=== PATIENT | female | born 1940 | race Caucasian/White ===

== ENCOUNTER → 2018-01-03 10:25 | Outpatient (CLI) | payer MEDICARE, OTHER, SELFPAY ==
[2018-01-03 11:38] LABS: AST(SGOT) 16 U/L (15-37); Alanine Aminotransfer ALT/SGPT 23 U/L (13-56); Albumin, Serum 3.4 g/dL (3.2-5.0); Alkaline Phosphatase 74 U/L (45-117); Bilirubin, Direct 0.06 mg/dL (0.00-0.30); Cholesterol 127 mg/dL (200); Globulin 4.1 g/dL (2.2-4.2); High Density Lipoprotein 38 mg/dL; Protein, Total 7.5 g/dL (6.4-8.2); Triglycerides 233 mg/dL; Very Low Density Lipoprotein 47 mg/dL (5-40)
[2018-01-03 14:14] LABS: Anion Gap 8 (5-15); BUN 20 mg/dL (7-18); BUN/Creat Ratio 21.1 RATIO (10-20); Calcium,Total 8.7 mg/dL (8.5-10.1); Chloride 105 mmol/L (98-107); Creatinine, Serum 0.95 mg/dL (0.55-1.02); EST Glomerular Filtration Rate 61 mL/min (>60); Est Glom Filt Rate - Afr Amer 74 mL/min (>60); Glucose 199 mg/dL (74-106); Potassium 4.6 mmol/L (3.5-5.1); Sodium Level 138 mmol/L (136-145); Thyroid Stim Hormone (TSH) 1.04 uIU/mL (0.358-3.74)
== END ==
PROVIDERS: Family Provider Family Medicine; PCP Family Medicine; Visit Provider Internal Medicine Cardiovascular Disease
DX: E78.5 Hyperlipidemia, unspecified (principal); E03.9 Hypothyroidism, unspecified; Z79.899 Other long term (current) drug therapy
CPT/HCPCS: 36415; 80048; 80061; 80076; 84439; 84443

== ENCOUNTER → 2018-05-04 10:06 | Outpatient (CLI) | payer MEDICARE, OTHER, SELFPAY ==
[2018-05-04 11:58] LABS: Absolute Lymphocyte Count 1.76 X10^3/ul (0.83-4.51); Absolute Neutrophil Count 6.1 X10^3/uL (2.0-7.7); Basophil# 0.02 X10^3/uL; Basophil% 0.2 % (0-1); Eosinophil# 0.15 X10^3/uL; Eosinophils% 1.8 % (0-5); Hematocrit 42.8 % (37-47); Hemoglobin 13.7 g/dl (12.0-15.0); Lymphocyte # 1.76 X10^3/ul (4.0); Lymphocyte % 20.7 % (19-41); Mean Corpuscular Hgb 29.3 pg (27.0-32.0); Mean Corpuscular Volume 91.5 fL (81-99); Mean Platelet Vol. 9.6 fl (6.2-12.0); Monocyte# 0.49 X10^3/uL; Monocyte% 5.8 % (0-10); Neutrophil # 6.09 X10^3/uL (2.7-7.7); Neutrophil % 71.4 % (47-70); Platelet Count 321 K/mm3 (150-450); RBC Distribution Width CV 13.3 % (11.6-14.6); RBC Distribution Width SD 43.7 fl (35.1-43.9); Red Blood Count 4.68 M/mm3 (4.2-5.4); White Blood Count 8.5 K/mm3 (4.4-11.0)
[2018-05-04 12:03] LABS: POSITIVE COUNT NO; POSITIVE DIFFERENTIAL NO; POSITIVE MORPHOLOGY NO
[2018-05-04 12:16] LABS: Vitamin D,25 Hydroxy 46.1 ng/mL (29.95-100.01)
[2018-05-04 12:23] LABS: Anion Gap 9 (5-15); BUN 19 mg/dL (7-18); Calcium,Total 9.1 mg/dL (8.5-10.1); Chloride 103 mmol/L (98-107); Creatinine, Serum 0.82 mg/dL (0.55-1.02); EST Glomerular Filtration Rate 72 mL/min (>60); Est Glom Filt Rate - Afr Amer 87 mL/min (>60); Glucose 189 mg/dL (74-106); Potassium 4.1 mmol/L (3.5-5.1); Sodium Level 137 mmol/L (136-145); T4 Free Direct 1.32 ng/dL (0.76-1.46); Thyroid Stim Hormone (TSH) 1.46 uIU/mL (0.358-3.74)
== END ==
PROVIDERS: Family Provider Family Medicine; PCP Family Medicine; Visit Provider Family Medicine
DX: E11.65 Type 2 diabetes mellitus with hyperglycemia (principal); I10 Essential (primary) hypertension; E03.9 Hypothyroidism, unspecified; E55.9 Vitamin D deficiency, unspecified
CPT/HCPCS: 36415; 80048; 82306; 84439; 84443; 85025

== ENCOUNTER → 2019-06-07 09:32 | Outpatient (CLI) | payer MEDICARE, OTHER, SELFPAY ==
[2018-06-30 11:17] VITALS: BMI 38.3
[2019-06-07 12:16] LABS: Absolute Lymphocyte Count 1.58 X10^3/uL (0.83-4.51); Absolute Neutrophil Count 6.1 X10^3/uL (2.0-7.7); Basophil# 0.06 X10^3/uL; Basophil% 0.7 % (0-1); Eosinophil# 0.13 X10^3/uL; Eosinophils% 1.5 % (0-5); Hematocrit 43.1 % (37-47); Lymphocyte # 1.58 X10^3/ul (4.0); Lymphocyte % 18.4 % (19-41); Mean Corp Hgb Conc 32.5 g/dL (32-36); Mean Corpuscular Volume 92.5 fL (81-99); Mean Platelet Vol. 9.6 fl (6.2-12.0); Monocyte# 0.69 X10^3/uL; NRBC Flagged by Analyzer 0 % (0-5); Neutrophil # 6.08 X10^3/uL (2.7-7.7); Neutrophil % 70.9 % (47-70); Platelet Count 329 K/mm3 (150-450); RBC Distribution Width CV 12.6 % (11.6-14.6); RBC Distribution Width SD 42.4 fl (35.1-43.9); Red Blood Count 4.66 M/mm3 (4.2-5.4); White Blood Count 8.6 K/mm3 (4.4-11.0)
[2019-06-07 12:48] LABS: ALB/GLOB Ratio 0.9 RATIO (0.9-2.4); AST(SGOT) 15 U/L (15-37); Alanine Aminotransfer ALT/SGPT 22 U/L (13-56); Albumin, Serum 3.7 g/dL (3.2-5.0); Alkaline Phosphatase 80 U/L (45-117); Anion Gap 10 (5-15); BUN 16 mg/dL (7-18); BUN/Creat Ratio 17.4 RATIO (10-20); Calcium,Total 8.9 mg/dL (8.5-10.1); Chloride 106 mmol/L (98-107); Creatinine, Serum 0.92 mg/dL (0.55-1.02); EST Glomerular Filtration Rate 63 mL/min (>60); Est Glom Filt Rate - Afr Amer 76 mL/min (>60); Glucose 132 mg/dL (74-106); Potassium 4.2 mmol/L (3.5-5.1); Protein, Total 7.7 g/dL (6.4-8.2); Sodium Level 141 mmol/L (136-145); T4 Free Direct 1.43 ng/dL (0.76-1.46); Thyroid Stim Hormone (TSH) 1.55 uIU/mL (0.358-3.74); Vitamin D,25 Hydroxy 59.1 ng/mL (29.95-100.01)
== END ==
PROVIDERS: Family Provider Family Medicine; PCP Family Medicine; Visit Provider Family Medicine
DX: E11.65 Type 2 diabetes mellitus with hyperglycemia (principal); I10 Essential (primary) hypertension; K76.89 Other specified diseases of liver
CPT/HCPCS: 36415; 80053; 82306; 84439; 84443; 85025

== ENCOUNTER → 2019-07-04 11:43 | Outpatient (CLI) | payer MEDICARE, OTHER, SELFPAY ==
[2019-07-04 10:55] VITALS: BMI 42.4
[2019-07-04 13:14] LABS: AST(SGOT) 10 U/L (15-37); Alanine Aminotransfer ALT/SGPT 17 U/L (13-56); Albumin, Serum 3.5 g/dL (3.2-5.0); Alkaline Phosphatase 87 U/L (45-117); Bilirubin, Direct 0.09 mg/dL (0.00-0.30); Cholesterol 133 mg/dL (200); High Density Lipoprotein 37 mg/dL; Protein, Total 7.5 g/dL (6.4-8.2); Triglycerides 221 mg/dL; Very Low Density Lipoprotein 44 mg/dL (5-40)
== END ==
PROVIDERS: Family Provider Family Medicine; PCP Family Medicine; Referring Provider Internal Medicine Cardiovascular Disease; Visit Provider Internal Medicine Cardiovascular Disease
DX: E78.5 Hyperlipidemia, unspecified (principal); Z79.899 Other long term (current) drug therapy
CPT/HCPCS: 36415; 80061; 80076

== ENCOUNTER → 2020-06-27 08:30 | Outpatient (CLI) | payer MEDICARE, OTHER, SELFPAY ==
[2019-07-04 10:55] VITALS: BMI 42.4
[2020-06-27 12:38] LABS: Absolute Lymphocyte Count 1.81 X10^3/uL (0.83-4.51); Absolute Neutrophil Count 4.3 X10^3/uL (2.0-7.7); Basophil# 0.06 X10^3/uL; Basophil% 0.9 % (0-1); Eosinophil# 0.16 X10^3/uL; Eosinophils% 2.3 % (0-5); Hematocrit 40.4 % (37-47); Hemoglobin 12.8 g/dL (12.0-15.0); Lymphocyte # 1.81 X10^3/ul (4.0); Lymphocyte % 26.1 % (19-41); Mean Corp Hgb Conc 31.7 g/dL (32-36); Mean Corpuscular Hgb 29.6 pg (27.0-32.0); Mean Corpuscular Volume 93.5 fL (81-99); Mean Platelet Vol. 9.7 fl (6.2-12.0); Monocyte# 0.55 X10^3/uL; Monocyte% 7.9 % (0-10); NRBC Flagged by Analyzer 0 % (0-5); Neutrophil # 4.34 X10^3/uL (2.7-7.7); Neutrophil % 62.5 % (47-70); Platelet Count 322 K/mm3 (150-450); RBC Distribution Width CV 12.7 % (11.6-14.6); RBC Distribution Width SD 43.2 fl (35.1-43.9); Red Blood Count 4.32 M/mm3 (4.2-5.4); White Blood Count 6.9 K/mm3 (4.4-11.0)
[2020-06-27 12:58] LABS: Vitamin D,25 Hydroxy 73.1 ng/mL
[2020-06-27 13:07] LABS: ALB/GLOB Ratio 0.9 RATIO (0.9-2.4); AST(SGOT) 15 U/L (15-37); Alanine Aminotransfer ALT/SGPT 24 U/L (13-56); Albumin, Serum 3.5 g/dL (3.2-5.0); Alkaline Phosphatase 71 U/L (45-117); Anion Gap 6 (5-15); BUN 19 mg/dL (7-18); BUN/Creat Ratio 20.1 RATIO (10-20); Calcium,Total 8.5 mg/dL (8.5-10.1); Chloride 107 mmol/L (98-107); Creatinine, Serum 0.95 mg/dL (0.55-1.02); EST Glomerular Filtration Rate 61 mL/min (>60); Est Glom Filt Rate - Afr Amer 74 mL/min (>60); Globulin 3.9 g/dL (2.2-4.2); Glucose 111 mg/dL (74-106); Protein, Total 7.4 g/dL (6.4-8.2); Sodium Level 137 mmol/L (136-145); Thyroid Stim Hormone (TSH) 2.63 uIU/mL (0.358-3.74)
== END ==
PROVIDERS: PCP Family Medicine; Visit Provider Family Medicine
DX: E11.65 Type 2 diabetes mellitus with hyperglycemia (principal); E03.9 Hypothyroidism, unspecified; E55.9 Vitamin D deficiency, unspecified; I10 Essential (primary) hypertension
CPT/HCPCS: 36415; 80053; 82306; 83036; 84443; 85025

== ENCOUNTER → 2020-07-09 12:08 | Outpatient (CLI) | payer MEDICARE, OTHER, SELFPAY ==
[2020-07-09 09:51] VITALS: BMI 43.7
[2020-07-09 13:13] LABS: AST(SGOT) 14 U/L (15-37); Alanine Aminotransfer ALT/SGPT 21 U/L (13-56); Albumin, Serum 3.5 g/dL (3.2-5.0); Alkaline Phosphatase 79 U/L (45-117); Bilirubin, Direct 0.12 mg/dL (0.00-0.30); Cholesterol 124 mg/dL (200); Globulin 3.7 g/dL (2.2-4.2); High Density Lipoprotein 38 mg/dL; Protein, Total 7.2 g/dL (6.4-8.2); Triglycerides 232 mg/dL; Very Low Density Lipoprotein 46 mg/dL (5-40)
== END ==
PROVIDERS: PCP Family Medicine; Referring Provider Internal Medicine Cardiovascular Disease; Visit Provider Internal Medicine Cardiovascular Disease
DX: I10 Essential (primary) hypertension (principal); E78.5 Hyperlipidemia, unspecified
CPT/HCPCS: 36415; 80061; 80076

== ENCOUNTER → 2021-01-20 11:14 | Outpatient (CLI) | payer MEDICARE, OTHER, SELFPAY ==
[2020-07-09 09:51] VITALS: BMI 43.7
[2021-01-20 15:54] LABS: Anion Gap 7 (5-15); BUN 19 mg/dL (7-18); BUN/Creat Ratio 17.4 RATIO (10-20); Calcium,Total 9.3 mg/dL (8.5-10.1); Chloride 106 mmol/L (98-107); Creatinine, Serum 1.09 mg/dL (0.55-1.02); EST Glomerular Filtration Rate 52 mL/min (>60); Est Glom Filt Rate - Afr Amer 62 mL/min (>60); Glucose 280 mg/dL (74-106); Potassium 4.3 mmol/L (3.5-5.1); Sodium Level 138 mmol/L (136-145); Thyroid Stim Hormone (TSH) 2.27 uIU/mL (0.358-3.74)
== END ==
PROVIDERS: PCP Family Medicine; Visit Provider Family Medicine
DX: E11.65 Type 2 diabetes mellitus with hyperglycemia (principal); E03.9 Hypothyroidism, unspecified
CPT/HCPCS: 36415; 80048; 84443

== ENCOUNTER → 2021-04-21 11:11 | Outpatient (CLI) | payer MEDICARE, OTHER, SELFPAY ==
[2020-07-09 09:51] VITALS: BMI 43.7
[2021-04-21 13:15] LABS: AST(SGOT) 18 U/L (15-37); Alanine Aminotransfer ALT/SGPT 18 U/L (13-56); Albumin, Serum 3.7 g/dL (3.2-5.0); Alkaline Phosphatase 80 U/L (45-117); Bilirubin, Direct 0.14 mg/dL (0.00-0.30); Cholesterol 134 mg/dL (200); Globulin 3.8 g/dL (2.2-4.2); High Density Lipoprotein 43 mg/dL; Protein, Total 7.5 g/dL (6.4-8.2); Triglycerides 167 mg/dL; Very Low Density Lipoprotein 33 mg/dL (5-40)
== END ==
PROVIDERS: PCP Family Medicine; Referring Provider Internal Medicine Cardiovascular Disease; Visit Provider Internal Medicine Cardiovascular Disease
DX: E78.5 Hyperlipidemia, unspecified (principal); E78.00 Pure hypercholesterolemia, unspecified
CPT/HCPCS: 36415; 80061; 80076

== ENCOUNTER → 2022-08-13 | Outpatient (CLI) | payer MEDICARE, OTHER, SELFPAY ==
[2022-08-13 13:06] LABS: AST(SGOT) 16 U/L (15-37); Alanine Aminotransfer ALT/SGPT 23 U/L (13-56); Albumin, Serum 3.4 g/dL (3.2-5.0); Alkaline Phosphatase 74 U/L (45-117); Bilirubin, Direct 0.07 mg/dL (0.00-0.30); Cholesterol 138 mg/dL (200); Globulin 4.1 g/dL (2.2-4.2); High Density Lipoprotein 37 mg/dL; Protein, Total 7.5 g/dL (6.4-8.2); Triglycerides 255 mg/dL; Very Low Density Lipoprotein 51 mg/dL (5-40)
== END | disposition home or self-care (01) ==
LOC: LAB 12:02
PROVIDERS: PCP Family Medicine; Referring Provider Internal Medicine Cardiovascular Disease; Visit Provider Internal Medicine Cardiovascular Disease
DX: E78.00 Pure hypercholesterolemia, unspecified (principal)
CPT/HCPCS: 36415; 80061; 80076

== ENCOUNTER → 2022-09-09 | Outpatient (CLI) | payer MEDICARE, OTHER, SELFPAY ==
--- NOTE | 2022-09-09 08:49 | CDU_ITS ---
Reason For Study: Carotid Bruit Rt. Velocities/BP Lt. Velocities/BP Prox CCA 61.3/15.5 cm/sec. Prox CCA 89.4/13.5 cm/sec. Mid CCA 57.5/15.7 cm/sec. Mid CCA 83.9/11.3 cm/sec. Dist CCA 63.0/13.5 cm/sec. Dist CCA 54.2/14.6 cm/sec. Prox ICA 66.3/15.7 cm/sec. Prox ICA 45.4/13.5 cm/sec. Mid ICA 69.6/15.7 cm/sec. Mid ICA 46.5/13.5 cm/sec. Dist ICA 38.6/10.8 cm/sec. Dist ICA 32.3/9.0 cm/sec. Rt. ICA/CCA = 1.2. Lt. ICA/CCA = 0.6. Prox ECA 65.2/9.1 cm/sec. Prox ECA 65.2/5.8 cm/sec. Rt. Vert. 53.1/13.5 cm/sec. Lt. Vert. 44.3/11.3 cm/sec. Right Extracranial There is intimal thickening but no significant atherosclerotic plaque noted in the right common carotid artery. There is heterogeneous, irregular atherosclerotic plaque noted in the right internal carotid artery. There is intimal thickening but no significant atherosclerotic plaque noted in the right external carotid artery. Antegrade flow is noted in the right vertebral artery. Left Extracranial There is heterogeneous, irregular atherosclerotic plaque noted in the left common carotid artery. There is heterogeneous, irregular atherosclerotic plaque noted in the left internal carotid artery. There is heterogeneous, irregular atherosclerotic plaque noted in the left external carotid artery. Antegrade flow is noted in the left vertebral artery. Procedure Carotid Duplex 14611. This is a Carotid Duplex examination using B-mode, color flow and specral Doppler. The exam was diagnostic. Exam performed in department. VL/Carotid Duplex Ultrasound Interpretation Summary Irregular calcific plaque at the proximal right internal carotid artery with le ss than 50% stenosis less than 50% stenosis right external carotid artery Minimal irregular plaque at the proximal left internal carotid artery with less than 50% stenosis Less than 50% stenosis left external carotid artery Patent and antegrade vertebral arteries bilaterally No change from the previous examination of July 26, 2017 Ordering Physician: Richard Puri Referring Physician: Juan Woods Performed By: Sunny Pizarro RVT
--- NOTE | 2022-09-09 08:49 | ECHOCS_ITS ---
Reason For Study: CAD/ASHD Procedure This was a 2D Doppler, Color Flow transthoracic echocardiogram. The study was technically difficult. Contrast injection was performed. Exam performed in department. Left Ventricle Normal LV size. Left ventricular systolic function is normal. The estimated ejection fraction is 60 %. Stage 1 diastolic dysfunction. No regional wall motion abnormalities noted. Right Ventricle Normal RV size. Normal systolic function. Atria Normal left atrium. Normal right atrium. Mitral Valve Normal mitral valve. Tricuspid Valve The tricuspid valve is not well visualized. Mild (1+) tricuspid valve insufficiency. Pulmonary artery systolic pressure is 33 mmHg. Aortic Valve The aortic valve is not well visualized. Pulmonic Valve The pulmonic valve is not well visualized. Great Vessels Normal aortic root. The pulmonary artery is normal size. Normal inferior vena cava. Pericardium/Pleural No pericardial effusion. Medication Diluted definity 1.5ml given slow IV push to enhance endocardial definition. MMode/2D Measurements & Calculations LVIDd: 3.9 cm IVSd: 1.1 cm Ao root diam: 3.4 cm LVIDs: 2.9 cm LVPWd: 1.0 cm RVDd: 2.4 cm FS: 26.3 % LAV(MOD-bp): 37.1 ml LA A4 area: 17.2 cm2 LA dimension(2D): 3.4 cm LAV(MOD-bp) Indexed: 21.0 ml/m2 LAV(MOD-sp2): 29.8 ml LAV(MOD-sp4): 46.6 ml RA A4 area: 9.5 cm2 Doppler Measurements & Calculations MV E max feng: 52.1 cm/sec Lat Peak E' Feng: 6.1 cm/sec Med Peak E' Feng: 5.9 cm/sec MV A max feng: 95.2 cm/sec E/E' lat: 8.5 E/E' med: 8.9 MV E/A: 0.55 Ao V2 max: 131.6 cm/sec LV V1 max: 107.0 cm/sec PA V2 max: 77.3 cm/sec Ao max P.9 mmHg LV V1 max P.6 mmHg Ao V2 mean: 94.4 cm/sec Ao mean P.9 mmHg Ao V2 VTI: 29.7 cm TR max feng: 265.6 cm/sec TR max P.2 mmHg ECHO/Echo Complete W/ Contrast Interpretation Summary Normal LV size. Left ventricular systolic function is normal. The estimated ejection fraction is 60 %. Stage 1 diastolic dysfunction. Pulmonary artery systolic pressure is 33 mmHg. Contrast injection was performed. Ordering Physician: Richard Puri Referring Physician: Juan Woods Performed By: Sheron Shea, ROGERCS, RVT
== END | disposition home or self-care (01) ==
LOC: CVS 08:48
PROVIDERS: PCP Family Medicine; Referring Provider Internal Medicine Cardiovascular Disease; Visit Provider Internal Medicine Cardiovascular Disease
DX: I65.23 Occlusion and stenosis of bilateral carotid arteries (principal); I25.10 Atherosclerotic heart disease of native coronary artery without angina pectoris; Z86.73 Personal history of transient ischemic attack (TIA), and cerebral infarction without residual deficits
CPT/HCPCS: 93306; 93880; Q9957; A4216; C8929

== ENCOUNTER → 2023-01-15 | Outpatient (CLI) | payer MEDICARE, OTHER, SELFPAY ==
[2023-01-15 12:25] LABS: Absolute Lymphocyte Count 1.22 X10^3/uL (0.83-4.51); Absolute Neutrophil Count 5.6 X10^3/uL (2.0-7.7); Basophil# 0.04 X10^3/uL; Basophil% 0.5 % (0-1); Eosinophil# 0.14 X10^3/uL; Eosinophils% 1.9 % (0-5); Hematocrit 39.7 % (37-47); Hemoglobin 12.4 g/dL (12.0-15.0); Lymphocyte # 1.22 X10^3/ul (0.83-4.51); Lymphocyte % 16.2 % (19-41); Mean Corp Hgb Conc 31.2 g/dL (32-36); Mean Corpuscular Hgb 29.2 pg (27.0-32.0); Mean Corpuscular Volume 93.4 fL (81-99); Mean Platelet Vol. 9.5 fl (6.2-12.0); Monocyte# 0.48 X10^3/uL; Monocyte% 6.4 % (0-10); NRBC Flagged by Analyzer 0 % (0-5); Neutrophil # 5.61 X10^3/uL (2.7-7.7); Neutrophil % 74.6 % (47-70); Platelet Count 320 K/mm3 (150-450); RBC Distribution Width CV 13.2 % (11.6-14.6); RBC Distribution Width SD 44.9 fl (35.1-43.9); Red Blood Count 4.25 M/mm3 (4.2-5.4); White Blood Count 7.5 K/mm3 (4.4-11.0)
[2023-01-15 12:55] LABS: Vitamin D,25 Hydroxy 81.3 ng/mL
[2023-01-15 13:12] LABS: Microalbumin:Creatinine Ratio 110.8 mg/g CRE (<30 mg/g CRE)
[2023-01-15 13:15] LABS: ALB/GLOB Ratio 0.9 RATIO (0.9-2.4); AST(SGOT) 14 U/L (15-37); Alanine Aminotransfer ALT/SGPT 23 U/L (13-56); Albumin, Serum 3.7 g/dL (3.2-5.0); Alkaline Phosphatase 64 U/L (45-117); Anion Gap 12 (5-15); BUN 27 mg/dL (7-18); BUN/Creat Ratio 24.5 RATIO (10-20); Bilirubin, Direct 0.08 mg/dL (0.00-0.30); Calcium,Total 9.5 mg/dL (8.5-10.1); Chloride 105 mmol/L (98-107); Cholesterol 151 mg/dL (200); EST Glomerular Filtration Rate 51 mL/min (>60); Est Glom Filt Rate - Afr Amer 61 mL/min (>60); Glucose 259 mg/dL (74-106); High Density Lipoprotein 45 mg/dL; Potassium 4.1 mmol/L (3.5-5.1); Protein, Total 7.7 g/dL (6.4-8.2); Sodium Level 140 mmol/L (136-145); Thyroid Stim Hormone (TSH) 0.96 uIU/mL (0.358-3.74); Triglycerides 193 mg/dL; Very Low Density Lipoprotein 39 mg/dL (5-40)
== END | disposition home or self-care (01) ==
LOC: BIMLAB 10:38
PROVIDERS: PCP Internal Medicine; Referring Provider Internal Medicine; Visit Provider Internal Medicine
DX: I10 Essential (primary) hypertension (principal); E11.9 Type 2 diabetes mellitus without complications; E78.00 Pure hypercholesterolemia, unspecified; E03.9 Hypothyroidism, unspecified; M85.80 Other specified disorders of bone density and structure, unspecified site
CPT/HCPCS: 36415; 80053; 80061; 82043; 82248; 82306; 82570; 84443; 85025

== ENCOUNTER → 2023-02-10 | Outpatient (CLI) | payer MEDICARE, OTHER, SELFPAY ==
--- NOTE | 2023-02-10 09:37 | BD_ITS ---
STUDY: DUAL ENERGY X-RAY ABSORPTIOMETRY / DXA REASON FOR EXAM: Female, 82 years old. Post menopausal TECHNIQUE: Bone Mineral Density (BMD) measurements of both forearms were obtained. COMPARISON: None. FINDINGS: Right Forearm: g/cm2 (0.540) / T-score (-0.7) / Z-score (2.3) Left Forearm: g/cm2 (0.572) / T-score (-0.1) / Z-score (2.9) BD/Dexa Bone Density Study IMPRESSION: The patient is considered normal as outlined below according to World [employer] Organization (WHO) criteria with a low fracture risk. Reference Information: The T-score is the number of standard deviations above or below the standard which is normal for young adults at their peak bone mineral density. The World Health Organization (WHO) interprets the T-scores as follows: Above -1 Normal bone density Between -1 and -2.5 Osteopenia Equal to / or below -2.5 Osteoporosis As a practical clinical guideline, osteopenia may be graded as follows: Mild -1 through -1.5 Moderate -1.6 through -2.0 Severe -2.1 through -2.4 The Z-score is the number of standard deviations above or below age-matched controls. A Z-score of less than -1.5 would be considered abnormal. References: 1. NIH Osteoporosis and Related Bone Diseases www osteo.org 2. International Society for Clinical Densitometry www iscd.org 3. National Osteoporosis Foundation www nof.org Electronically Signed: Frank Siegel MD at 9:25 EDT ,
== END | disposition home or self-care (01) ==
LOC: OPBD 09:33
PROVIDERS: PCP Internal Medicine; Visit Provider Internal Medicine
DX: Z13.820 Encounter for screening for osteoporosis (principal); Z78.0 Asymptomatic menopausal state
CPT/HCPCS: 77080

== ENCOUNTER → 2023-04-19 | Outpatient (CLI) | payer MEDICARE, OTHER, SELFPAY ==
[2023-04-19 17:02] LABS: Anion Gap 10 (5-15); BUN 21 mg/dL (7-18); BUN/Creat Ratio 17.4 RATIO (10-20); Calcium,Total 9.3 mg/dL (8.5-10.1); Chloride 104 mmol/L (98-107); Creatinine, Serum 1.21 mg/dL (0.55-1.02); EST Glomerular Filtration Rate 45 mL/min (>60); Est Glom Filt Rate - Afr Amer 55 mL/min (>60); Glucose 188 mg/dL (74-106); Potassium 3.8 mmol/L (3.5-5.1); Sodium Level 137 mmol/L (136-145)
[2023-04-19 17:05] LABS: Hemoglobin A1c 6.7 % (3.8-5.6)
== END | disposition home or self-care (01) ==
LOC: BIMLAB 15:38
PROVIDERS: PCP Internal Medicine; Visit Provider Internal Medicine
DX: E11.9 Type 2 diabetes mellitus without complications (principal)
CPT/HCPCS: 36415; 80048; 83036

== ENCOUNTER → 2023-12-02 | Outpatient (CLI) | payer MEDICARE, OTHER, SELFPAY ==
--- OUTSIDE RECORDS SUMMARY | 2023-12-02 12:28 | XMS RPT_ITS | CCD ---
Author Name Unknown Address [address] [place] [address] Organization [facility] Care Team Providers Care Dialysis Rn Name Role Phone [facility] Nurse Unavailable Unavailable Lori Lewis RN Unavailable Unavailable Lori Lewis RN Unavailable Unavailable Anjel Rodrigues Unavailable Unavailable MD Jaxson, [place] S Unavailable Sirena Gallardo Unavailable Sirena Gallardo Unavailable Lori Lewis RN Unavailable Unavailable Chuck GILES, Flavio Rodriguez Primary Care Provider [phone] Flavio Woods MD Primary Care Provider [phone] SVEN TREJO Referring Unavailable FLAVIO WOODS Primary Care Unavailable Allergies Allergy Classification Reported Allergen(s) Allergy Type Date of Onset Reaction(s) Facility (12 sources) codeine; Translations: [CODEINE] drug allergy 1 Other: See Comments [facility] Work Phone: [phone] (8 sources) nitrofurantoin drug allergy 1 Jittery [facility] Work Phone: [phone] (6 sources) oxybutynin drug allergy 7 hematuria [facility] Work Phone: (8 sources) ARTHRITIS MEDICATION drug allergy 1 Rash [facility] Work Phone: [phone] (4 sources) nabumetone; Translations: [NABUMETONE] Drug Allergy 2 Rash [facility] Work Phone: (4 sources) Nitrofurantoin; Translations: [NITROFURANTOIN MACROCRYSTALLINE] Drug Allergy 2 Other: See Comments [facility] Work Phone: Medications Completed/Discontinued Medications Medication Drug Class(es) Dates Sig (Normalized) Sig (Original) amLODIPine 10 mg oral tablet (20 sources) Dihydropyridine Calcium Channel Sundar Start: 05-22-2011 take 1 tablet by mouth once daily NORVASC 10 MG TABS One tablet by mouth daily AMLODIPINE BESYLATE [id number] Richard Puri MD Problems Active Problems Problem Classification Problem Date Documented Da te Episodic/Chronic Cardiac dysrhythmias (8 sources) Ventricular premature beats; Translations: [Ventricular premature depolarization] Onset: 05-22-2011 05-22-2011 Chronic Diabetes mellitus without complication (8 sources) Diabetes mellitus; Translations: [Type 2 diabetes mellitus without complications] Onset: 10-11-2014 10-11-2014 Chronic Disorders of lipid metabolism (8 sources) Hyperlipidemia; Translations: [Hyperlipidemia, unspecified] Onset: 05-22-2011 05-22-2011 Chronic Essential hypertension (8 sources) Hypertensive disorder; Translations: [Essential (primary) hypertension] Onset: 05-22-2011 05-22-2011 Chronic Other congenital anomalies (8 sources) Other specified anomalies of skin; 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] 02-05-2014 Chronic Other nutritional; endocrine; and metabolic disorders (20 sources) Body mass index (BMI) 38.0-38.9, adult; Translations: [Body mass index (BMI) 37.0-37.9, adult] Onset: 02-27-2014 Resolved: 11-06-2015 11-06-2015 Chronic Other nutritional; endocrine; and metabolic disorders (3 sources) Body mass index (BMI) 37.0-37.9, adult; Translations: [Body mass index (BMI) 37.0-37.9, adult] Onset: 10-11-2014 10-11-2014 Chronic Other screening for suspected conditions (not mental disorders or infectious disease) (3 sources) Mammography abnormal; Translations: [Other abnormal and inconclusive findings on diagnostic imaging of breast] Onset: 10-19-2022 Episodic Thyroid disorders (3 sources) Acquired hypothyroidism; Translations: [Hypothyroidism, unspecified] Onset: 05-28-2015 05-28-2015 Chronic Unclassified (3 sources) Long-term drug therapy; Translations: [Other prison (current) drug therapy] Onset: 05-22-2011 05-22-2011 Unclassified (3 sources) Type 2 diabetes mellitus without complication; Translations: [Diabetes mellitus type 2, uncontrolled, without complications] Onset: 08-11-2012 09-03-2015 Past or Other Problems Problem Classification Problem Date Documented Date Episodic/Chronic Cardiac dysrhythmias (8 sources) Palpitations; Translations: [Palpitations] Onset: 05-22-2011 05-22-2011 Episodic Malaise and fatigue (8 sources) Fatigue; Translations: [Other fatigue] Onset: 05-22-2011 05-22-2011 Episodic Nonspecific chest pain (8 sources) Chest discomfort; Translations: [Other chest pain] Onset: 05-22-2011 05-22-2011 Episodic Other aftercare (5 sources) Other prison (current) drug therapy; Translations: [Other prison (current) drug therapy] Onset: 05-22-2011 05-22-2011 Episodic Other circulatory disease (11 sources) Electrocardiogram abnormal; Translations: [Carotid bruit] Onset: 05-22-2011 05-22-2011 Episodic Other circulatory disease (3 sources) Carotid bruit; Translations: [Other specified symptoms and signs involving the circulatory and respiratory systems] Onset: 06-29-2017 06-29-2017 Episodic Other lower respiratory disease (8 sources) Dyspnea; Translations: [Shortness of breath] Onset: 05-22-2011 05-22-2011 Episodic Residual codes; unclassified (3 sources) FH: Hypertension; Translations: [Family history of ischemic heart disease and other diseases of the circulatory system] 10-11-2014 Episodic Residual codes; unclassified (3 sources) Insomnia; Translations: [Insomnia, unspecified] Onset: 05-28-2015 05-28-2015 Episodic Unclassified (13 sources) Localized edema; Translations: [FH: Hypertension] Onset: 01-17-2016 01-17-2016 Episodic Results Test Name Value Interpretation Reference Range Facil ity Vital Signs Date Time Vital Sign Value Performing Clinician Quang rao 06-29-2017 12:45-0400 BMI (Body Mass Index) 37.74 kg/m2 [facility] Work Phone: 06-29-2017 12:45-0400 BP Diastolic 70 mm[Hg] [facility] Work Phone: 06-29-2017 12:45-0400 BP Systolic 130 mm[Hg] [facility] Work Phone: 06-29-2017 12:45-0400 Height 152.4 cm [facility] Work Phone: 06-29-2017 12:45-0400 Pulse (Heart Rate) 60 /min [facility] Work Phone: 06-29-2017 12:45-0400 Respiratory Rate 20 /min [facility] Work Phone: 06-29-2017 12:45-0400 Weight 87.66 kg [facility] Work Phone: 05-19-2016 11:00-0400 BMI (Body Mass Index) 37.3 kg/m2 MD [facility] Work Phone: 05-19-2016 11:00-0400 BP Diastolic 70 mm[Hg] Richard Puri MD [facility] Work Phone: 05-19-2016 11:00-0400 BP Systolic 136 mm[Hg] Richard Puri MD [facility] Work Phone: 05-19-2016 11:00-0400 BSA (Body Surface Area) 1.83 m2 MD [facility] Work Phone: 05-19-2016 11:00-0400 Height 152.4 cm MD [facility] Work Phone: 05-19-2016 11:00-0400 Pulse (Heart Rate) 66 /min MD [facility] Work Phone: 05-19-2016 11:00-0400 Respiratory Rate 18 /min MD [facility] Work Phone: 05-19-2016 11:00-0400 Weight 86.64 kg Richard Puri MD [facility] Work Phone: 10-11-2014 11:02-0500 Heart rate 64 /min Sirena Gallardo [facility] Work Phone: 03-15-2014 10:52-0400 Body Temperature 98.2 [degF] Richard Puri MD [facility] Work Phone: 05-29-2013 11:14-0400 Heart rate 435 ms Sirena Gallardo [facility] Work Phone: Encounters Encounter Date Encounter Type Care Provider Facility Start: 10-21-2022 Telephone encounter Sven scruggs MD Work Phone: MR PROVIDER ADULT Procedures Date Procedure Procedure Detail Performing Clinician Start: 12-23-2017 End: 01-04-2018 *Hepatic Function Panel Bernardo Jorge Start: 12-23-2017 End: 01-04-2018 Lipid panel [AGGREGATE] Bernardo Jorge Start: 06-29-2017 End: 07-28-2017 Carotid duplex Richard Puri MD Start: 06-29-2017 End: 07-26-2017 Echocardiography Richard Puri MD Start: 06-29-2017 End: 07-26-2017 Nuclear stress test -Lexiscan Richard Ricardo MD Start: 05-28-2017 End: 06-21-2017 *Hepatic Function Panel Bernardo Jorge Start: 05-28-2017 End: 06-21-2017 Lipid panel [AGGREGATE] Bernardo Jorge Start: 05-19-2016 End: 05-19-2016 Dietary management education, guidance, and counseling Sirena Gallardo Start: 05-19-2016 End: 05-19-2016 ABRIL Puri MD Start: 05-19-2016 End: 05-19-2016 Follow Up Appt 1 year Richard Puri MD Start: 05-06-2016 End: 05-28-2017 *Hepatic Function Panel Bernardo Jorge Start: 05-06-2016 End: 05-28-2017 Lipid panel [AGGREGATE] Bernardo Jorge Start: 01-17-2016 End: 05-28-2017 Venous doppler Darlene Mcdaniel PA-C Work Phone: Start: 11-12-2015 End: 11-12-2015 ABRIL Puri MD Start: 11-12-2015 End: 11-12-2015 Follow Up Appt 6 months Bernardo Jorge Start: 11-05-2015 End: 11-05-2015 *Hepatic Function Panel Bernardo Jorge Start: 11-05-2015 End: 11-05-2015 Lipid panel [AGGREGATE] Bernardo Jorge Start: 08-14-2015 End: 09-25-2015 *Hepatic Function Panel Bernardo Jorge Start: 08-14-2015 End: 09-25-2015 Lipid panel [AGGREGATE] Bernardo Jorge Start: 04-25-2015 End: 11-12-2015 ABRIL Puri MD Start: 04-25-2015 End: 04-26-2015 Documentation of current medications Richard Puri MD Start: 02-04-2015 End: 02-12-2015 *Hepatic Function Panel Bernardo Jorge Start: 02-04-2015 End: 02-12-2015 Lipid panel [AGGREGATE] Bernardo Jorge Start: 10-11-2014 End: 09-25-2015 [employer]PER[employer] Darlene Mcdaniel PA-C Work Phone: Start: 10-11-2014 End: 02-13-2015 Electrocardiogram, complete Darlene Barajas PA-C Work Phone: Start: 10-11-2014 End: 09-25-2015 Follow Up Appt 6 months Darlene mckeon PA-C Work Phone: Start: 07-09-2014 End: 08-06-2014 *Hepatic Function Panel Darlene mckeon PA-C Work Phone: Start: 07-09-2014 End: 08-06-2014 Lipid panel [AGGREGATE] Darlene mckeon PA-C Work Phone: Start: 03-09-2014 Exc [id number] b9+michelle 1.1-2 Caryn Chang Refugio Work Phone: Start: 02-27-2014 End: 02-27-2014 Follow Up Appt 6 months Bernardo Jorge Start: 02-27-2014 End: 02-27-2014 MMM Richard Puri MD Start: 02-06-2014 End: 02-27-2014 *Hepatic Function Panel Bernardo Jorge Start: 02-06-2014 End: 02-27-2014 Lipid panel [AGGREGATE] Bernardo oJrge Start: 05-29-2013 End: 02-27-2014 [employer]PER[employer]OR Darlene Mcdaniel PA-C Work Phone: Start: 05-29-2013 End: 05-29-2013 eRx Transmitted during this visit (Medicare only) Darlene Mcdaniel PA-C Work Phone: Start: 05-29-2013 End: 02-27-2014 Follow Up Appt 6 months Darlene mckeon PA-C Work Phone: Start: 11-29-2012 End: 11-29-2012 Follow Up Appt 6 months Bernardo Jorge Start: 11-29-2012 End: 11-29-2012 MMM Richard Puri MD Start: 11-21-2012 End: 02-27-2014 *Hepatic Function Panel Bernardo Jorge Start: 11-21-2012 End: 02-27-2014 Lipid panel [AGGREGATE] Bernardo Jorge Start: 05-27-2012 End: 05-27-2012 Follow Up Appt 6 months Bernardo Jorge Start: 05-09-2012 End: 05-25-2012 *Hepatic Function Panel Bernardo Jorge Start: 05-09-2012 End: 05-25-2012 Lipid panel [AGGREGATE] Bernardo Jorge Plan of Treatment Date Care Activity Detail Author Start: 10-21-2023 End: 11-20-2023 AVINASH SCREENING W MAIK AVINASH SCREENING W MAIK Radiology Routine Encounter for screening mammogram for malignant neoplasm of breast Expected: 10/21/2023, Expires: 11/20/2023 [facility] Work Phone: Immunizations Immunization Date Immunization Notes Care Provider Nery adkins 08-06-2014 influenza, injectabl e, quadrivalent, preservative free Sven Trejo MD Work Phone: [facility] Work Phone: 09-06-2012 influenza virus vaccine, unspecified formulation Sven Trejo MD Work Phone: [facility] Work Phone: Payers Date Payer Category Payer Private Health Insurance [facility] AARP SUPPLEMENT [id number] 2013-Present [phone] [address] [place] [address] Indemnity [id number] 2013 Private Health Insurance [facility] AARP SUPPLEMENT [id number] 2013-Present [phone] [address] [place] [address] Indemnity [id number] 2013 Unknown [id number] 2007 Medicare MEDICARE MEDICAR E A AND B [id number] 2007-Present [phone] [place] [address] Medicare [id number] 2007 Medicare MEDICARE MEDICAR E A AND B [id number] 2007-Present [phone] [place] [address] Medicare [id number] 2007 Medicare [id number] Social History Date Type Detail Facility Start: [facility]11-2012 [facility] Work Phone: Start: 08-11-2012 Tobacco use and exposure Smokeless tobacco non-user [facility] Work Phone: Start: 03-31-2021 Alcohol intake Current drinke r of alcohol (finding) [facility] Start: 1940 Sex Assigned At Not on file [facility] Start: 12-14-2021 End: 04-23-2022 Exposure to SARS-CoV-2 (event) Not sure [facility] Progress note 01-13-2022 Note Date & Type Note Facility 01-13-2022 Note HNO ID: [id number] Author: Jonatan Alberto PA-C Service: ? Author Type: Physician Sports Physiologist Type: Progress Notes Filed: 01/13/2022 10:44 AM Note Text: LARGE JOINT INJECTION/ARTHROCENTESIS: R knee joint 01/13/2022 10:02 AM The procedure site was prepped in the usual sterile fashion. Site: R knee joint Medications: 30 mg hyaluronate sod, cross-linked 30 mg/3 mL Outcome: Tolerated well, no immediate complications Post-injection instructions were reviewed with the patient and the patient voiced understanding of these instructions. [facility] Progress note 03-31-2021 Note Date & Type Note Facility 03-31-2021 Note HNO ID: [id number] Author: Jonatan Alberto PA-C Service: ? Author Type: Physician Sports Physiologist Type: Progress Notes Filed: 03/31/2021 11:26 AM Note Text: LARGE JOINT INJECTION/ARTHROCENTESIS: R knee joint The risks, benefits and alternatives of the procedure were reviewed with the patient/surrogate, who agreed to proceed. Written Consent Obtained: N/A Time Out: Time Out completed The Time-Out verifies the correct patient, procedure, side/site, position (if applicable) and completion and review of fire risk assessment/protocols (if appropriate): Affirmation of Time Out: Yes 03/31/2021 9:45 AM The procedure site was prepped in the usual sterile fashion. Allergies were reviewed Site: R knee joint Medications: 30 mg hyaluronate sod, cross-linked 30 mg/3 mL Outcome: Tolerated well, no immediate complications Post-injection instructions were reviewed with the patient and the patient voiced understanding of these instructions. [facility] Progress note 03-25-2021 Note Date & Type Note Facility 03-25-2021 Note HNO ID: [id number] Author: Jonatan Alberto PA-C Service: ? Author Type: Physician Sports Physiologist Type: Progress Notes Filed: 03/25/2021 12:05 PM Note Text: Outpatient Orthopaedic Office Visit PCP: Flavio Woods MD Subjective Chief Complaint: Patient presents with: Right Knee - New, Knee Pain PAIN EVALUATION 03/25/2021 1118 Pain Level: 8 Description: Sharp;Other: See comment Duration Amount of Time: 1 Duration Units: Days Frequency: Intermittent HPI: Kristine is a type II diabetic 80-year-old female who presents today for orthopedic evaluation and treatment of acute on chronic right knee symptoms. She reports that a week ago she was getting up from the couch and feels that she strained some ligaments in the posterior knee, this is because swelling and pain. She reports that yesterday she had a fall directly onto the right knee. She presents today with current pain severity of 8/10. She locates this to the medial and lateral right knee as well as posteriorly. She reports spasms of the knee. She reports sharp constant worsening pain especially at nighttime and with weightbearing. She is trying icy hot, compressive knee sleeve and has tried NSAIDs [id number]. She reports that she has difficulty tolerating NSAIDs because of gastric issues. She denies any numbness or tingling, denies any recent fever or chills. She has received corticosteroid injections in the past however she is trying to avoid the side effect of blood sugar changes. ROS Current Outpatient Medications Medication Sig Dispense Refill - LANTUS SOLOSTAR U-100 INSULIN 100 unit/mL (3 mL) INJECT 30 UNITS UNDER THE SKIN ONCE DAILY - levothyroxine (SYNTHROID) 100 mcg tablet Take 100 mcg by mouth once daily. - glimepiride (AMARYL) 2 mg tablet Take 2 mg by mouth twice daily. - atenolol (TENORMIN) 50 mg tablet Take 50 mg by mouth daily at bedtime. - conjugated estrogens (PREMARIN) vaginal cream Use vaginally once each week. - CARBOXYMETHYLCELLULOSE SODIUM (REFRESH OPHTHALMIC) Use in eyes. - metFORMIN ER (GLUCOPHAGE XR) 500 mg 24 hr tablet Take one tablet in the am and two in the evening 270 tablet 3 - biotin tab Take 2,500 mcg by mouth twice daily. - alpha tocopheryl acetate (VITAMIN E) 400 unit capsule Take 400 Units by mouth once daily. - melatonin 3 mg Take by mouth daily at bedtime. - sertraline 50 mg tablet Take 50 mg by mouth once daily. - ESTROGENS, CONJUGATED (PREMARIN VAGINAL) Use vaginally. - Cholecalciferol, Vitamin D3, (VITAMIN D) 1,000 unit Tab Take 1,000 Units by mouth once daily. - folic acid 400 mcg tablet Take 400 mcg by mouth once daily. - rosuvastatin (CRESTOR) 20 mg tablet Take 20 mg by mouth once daily. - losartan 100 mg tablet Take 100 mg by mouth once daily. - Multivitamin capsule Take 1 capsule by mouth once daily. - amLODIPine (NORVASC) 10 mg tablet Take 10 mg by mouth once daily. - celecoxib (CELEBREX) 200 mg capsule Take 1 capsule by mouth twice daily. 60 capsule 0 - MYRBETRIQ 25 mg Tb24 (Patient not taking: Reported on 03/25/2021 ) No current facility-administered medications for this visit. ALLERGIES Allergen Reactions - Codeine Other: See Comments Jitteriness, sleeplessness - Macrodantin [Nitrof* Other: See Comments Heart palpitations - Relafen [Nabumetone] Rash PAST MEDICAL HISTORY Diagnosis Date - Diabetes mellitus (HCC) PAST SURGICAL HISTORY Procedure Laterality Date - REMOVE TONSILS/ADENOIDS,<12 Y/O - REMV CATARACT EXTRACAP,INSERT LENS - TOTAL ABDOM HYSTERECTOMY History reviewed. No pertinent family history. Social History Tobacco Use - Smoking status: Never Smoker - Smokeless tobacco: Never Used Substance Use Topics - Alcohol use: Yes - Drug use: Not on file Objective BP 133/65 Pulse 73 Ht 4' 11 (1.50m) Wt 194 lb (88.0kg) BMI 39.16 kg/(m2). General: Alert and oriented x 3. Obese In no acute distress. right Knee examined: Skin intact, good capillary refill. Valgus alignment. No signs of infection, no significant edema or swelling. Mild effusion. Sensation appears intact. moderate tenderness over the Medial joint line and Lateral joint line. Nearly full extension with flexion less than 120?. No signs of instability. Decreased strength versus resistance. Homans negative. Positive Breanna's. left Knee examined: Skin intact, good capillary refill. No signs of trauma, no significant edema or swelling. No significant effusion. Sensation appears intact. No significant tenderness over the joint lines. Essentially full extension with flexion to about 120?. No signs of instability. Good strength versus resistance. Homans negative. Diagnostic Studies: Recent Results (from the past 36 hour(s)) XR KNEE POST OP 3V AP/LAT/MERCHANT RT Impression 3 views of the right knee were ordered, obtained, personally interpreted today and demonstrate advanced degenerative changes with complete loss of (more content not included)... [facility] Evaluation note Note Date & Type Note Facility documented in this encounter [facility] Evaluation note Note Date & Type Note Facility documented in this encounter [facility] Reason for referral (narrative) Diagnostic Procedure Only (Routine) - Authorized Note Date & Type Note Facility Referral ID Status Reason Start Date Expiration Date Visits Requested Visits Authorized [id number] Authorized Auto-Generat ed Referral 04/23/2022 05/23/2023 1 1 [facility] Reason for referral (narrative) Diagnostic Procedure Only (Routine) - Pending Review Note Date & Type Note Facility Referral ID Status Reason Start Date Expiration Date Visits Requested Visits Authorized [id number] Pending Review Auto-Generat ed Referral 3 11/20/2023 1 1 [facility] Summary Purpose Family History No Family History Records FoundNo Family History Records FoundNo Family History Records FoundNo Family History Records Found Advance Directives No Advanced Directives Records FoundNo Advanced Directives Records FoundNo Advanced Directives Records FoundNo Advanced Directives Records Found Additional Source Comments INFORMATION SOURCE (unrecogn ized section and content) DATE CREATED AUTHOR AUTHOR'S ORGANIZ ATION 01/13/2022 [facility] DATE CREATED AUTHOR AUTHOR'S ORGANIZ ATION 04/18/2022 [facility] [place] DATE CREATED AUTHOR AUTHOR'S ORGANIZ ATION 10/28/2022 [facility] Source Comments (unrecognize d section and content) In the event this informatio n is protected by the Federal Confidentiality of Alcohol and Drug Abuse Patient Records regulations: The Federal rules restrict any use of the information to criminally investigate or prosecute any alcohol or drug abuse patient.[facility] the event this information is protected by the Federal Confidentiality of Alcohol and Drug Abuse Patient Records regulations: The Federal rules restrict any use of the information to criminally investigate or prosecute any alcohol or drug abuse patient.[facility] the event this information is protected by the Federal Confidentiality of Alcohol and Drug Abuse Patient Records regulations: The Federal rules restrict any use of the information to criminally investigate or prosecute any alcohol or drug abuse patient.[facility] Care Teams (unrecognized sec tion and content) Dialysis Rn Relationship Specialty Start Date End Date Flavio Woods MD PCP - General Family Practice 07/05/13 Dialysis Rn Relationship Specialty Start Date End Date Flavio Woods MD PCP - General Family Medicine 07/05/13 Reason for Visit (unrecogniz ed section and content) FOR RECORDS PERTAINING TO PATIENTS WHO ARE OR HAVE BEEN ENROLLED IN A CHEMICAL DEPENDENCY/SUBSTANCEABUSE PROGRAM, SOME INFORMATION MAY BE OMITTED. This clinical summary was aggregated from multiple sources. Caution should be exercised in using it in the provision of clinical care. This summary normalizes information from multiple sources, and as a consequence, information in this document may materially change the coding, format and clinical context of patient data. In addition, data may be omitted in some cases. CLINICAL DECISIONS SHOULD BE BASED ON THE PRIMARY CLINICAL RECORDS. [employer] [facility]. provides no warranty or guarantee of the accuracy or completeness of information in this document.
[2023-12-02 15:31] LABS: Absolute Neutrophil Count 5.4 X10^3/uL (2.0-7.7); Basophil# 0.06 X10^3/uL; Basophil% 0.7 % (0-1); Eosinophil# 0.15 X10^3/uL; Eosinophils% 1.8 % (0-5); Hematocrit 43.3 % (37-47); Hemoglobin 13.8 g/dL (12.0-15.0); Lymphocyte % 24.5 % (19-41); Mean Corp Hgb Conc 31.9 g/dL (32-36); Mean Corpuscular Hgb 28.8 pg (27.0-32.0); Mean Corpuscular Volume 90.4 fL (81-99); Mean Platelet Vol. 9.9 fl (6.2-12.0); Monocyte# 0.54 X10^3/uL; Monocyte% 6.6 % (0-10); NRBC Flagged by Analyzer 0 % (0-5); Neutrophil % 66.2 % (47-70); Platelet Count 353 K/mm3 (150-450); RBC Distribution Width CV 13.2 % (11.6-14.6); RBC Distribution Width SD 43.9 fl (35.1-43.9); Red Blood Count 4.79 M/mm3 (4.2-5.4); White Blood Count 8.2 K/mm3 (4.4-11.0)
[2023-12-02 16:35] LABS: ALB/GLOB Ratio 0.9 RATIO (0.9-2.4); AST(SGOT) 19 U/L (15-37); Alanine Aminotransfer ALT/SGPT 25 U/L (13-56); Albumin, Serum 3.7 g/dL (3.2-5.0); Alkaline Phosphatase 62 U/L (45-117); Anion Gap 7 (5-15); BUN 20 mg/dL (7-18); BUN/Creat Ratio 21.4 RATIO (10-20); Calcium,Total 9.4 mg/dL (8.5-10.1); Chloride 109 mmol/L (98-107); Cholesterol 131 mg/dL (200); Creatinine, Serum 0.94 mg/dL (0.55-1.02); EST Glomerular Filtration Rate 61 mL/min (>60); Est Glom Filt Rate - Afr Amer 74 mL/min (>60); Globulin 4.1 g/dL (2.2-4.2); Glucose 61 mg/dL (74-106); High Density Lipoprotein 46 mg/dL; Potassium 3.7 mmol/L (3.5-5.1); Protein, Total 7.8 g/dL (6.4-8.2); Sodium Level 141 mmol/L (136-145); Thyroid Stim Hormone (TSH) 1.06 uIU/mL (0.358-3.74); Triglycerides 129 mg/dL; Very Low Density Lipoprotein 26 mg/dL (5-40)
== END | disposition home or self-care (01) ==
LOC: BIMLAB 12:15
PROVIDERS: PCP Internal Medicine; Referring Provider Internal Medicine; Visit Provider Internal Medicine
DX: I10 Essential (primary) hypertension (principal); E03.9 Hypothyroidism, unspecified
CPT/HCPCS: 36415; 80053; 80061; 84443; 85025

== ENCOUNTER → 2024-04-20 | Outpatient (CLI) | payer MEDICARE, OTHER, SELFPAY ==
[2024-04-20 16:45] LABS: Absolute Lymphocyte Count 1.59 X10^3/uL (0.83-4.51); Absolute Neutrophil Count 4.6 X10^3/uL (2.0-7.7); Basophil# 0.06 X10^3/uL; Basophil% 0.9 % (0-1); Eosinophils% 2.9 % (0-5); Hematocrit 41.6 % (37-47); Hemoglobin 13.1 g/dL (12.0-15.0); Lymphocyte # 1.59 X10^3/ul (0.83-4.51); Lymphocyte % 22.7 % (19-41); Mean Corp Hgb Conc 31.5 g/dL (32-36); Mean Corpuscular Hgb 29.1 pg (27.0-32.0); Mean Corpuscular Volume 92.4 fL (81-99); Mean Platelet Vol. 9.9 fl (6.2-12.0); Monocyte# 0.57 X10^3/uL; Monocyte% 8.1 % (0-10); NRBC Flagged by Analyzer 0 % (0-5); Neutrophil # 4.56 X10^3/uL (2.7-7.7); Neutrophil % 65.1 % (47-70); Platelet Count 315 K/mm3 (150-450); RBC Distribution Width SD 43.5 fl (35.1-43.9)
[2024-04-20 17:09] LABS: ALB/GLOB Ratio 0.9 RATIO (0.9-2.4); AST(SGOT) 16 U/L (15-37); Alanine Aminotransfer ALT/SGPT 18 U/L (13-56); Albumin, Serum 3.7 g/dL (3.2-5.0); Alkaline Phosphatase 76 U/L (45-117); Anion Gap 6 (5-15); BUN 24 mg/dL (7-18); BUN/Creat Ratio 22.9 RATIO (10-20); Calcium,Total 9.3 mg/dL (8.5-10.1); Chloride 109 mmol/L (98-107); Creatinine, Serum 1.05 mg/dL (0.55-1.02); EST Glomerular Filtration Rate 53 mL/min (>60); Est Glom Filt Rate - Afr Amer 65 mL/min (>60); Glucose 105 mg/dL (74-106); Protein, Total 7.7 g/dL (6.4-8.2); Sodium Level 138 mmol/L (136-145); Thyroid Stim Hormone (TSH) 1.34 uIU/mL (0.358-3.74)
== END | disposition home or self-care (01) ==
LOC: BIMLAB 15:10
PROVIDERS: PCP Internal Medicine; Visit Provider Internal Medicine
DX: E11.69 Type 2 diabetes mellitus with other specified complication (principal); Z79.4 Long term (current) use of insulin; I10 Essential (primary) hypertension; E03.9 Hypothyroidism, unspecified
CPT/HCPCS: 36415; 80053; 83036; 84443; 85025

== ENCOUNTER → 2024-09-11 | Outpatient (CLI) | payer MEDICARE, OTHER, SELFPAY ==
[2024-09-11 16:30] LABS: Absolute Neutrophil Count 6.4 X10^3/uL (2.0-7.7); Basophil# 0.08 X10^3/uL; Basophil% 0.9 % (0-1); Eosinophil# 0.27 X10^3/uL; Eosinophils% 3.1 % (0-5); Hematocrit 41.9 % (37-47); Hemoglobin 13.2 g/dL (12.0-15.0); Lymphocyte % 13.9 % (19-41); Mean Corp Hgb Conc 31.5 g/dL (32-36); Mean Corpuscular Hgb 28.8 pg (27.0-32.0); Mean Corpuscular Volume 91.3 fL (81-99); Mean Platelet Vol. 9.9 fl (6.2-12.0); Monocyte# 0.61 X10^3/uL; Monocyte% 7.1 % (0-10); NRBC Flagged by Analyzer 0 % (0-5); Neutrophil # 6.44 X10^3/uL (2.7-7.7); Neutrophil % 74.7 % (47-70); Platelet Count 375 K/mm3 (150-450); RBC Distribution Width CV 13.8 % (11.6-14.6); RBC Distribution Width SD 45.8 fl (35.1-43.9); Red Blood Count 4.59 M/mm3 (4.2-5.4); White Blood Count 8.6 K/mm3 (4.4-11.0)
[2024-09-11 16:47] LABS: ALB/GLOB Ratio 0.8 RATIO (0.9-2.4); AST(SGOT) 25 U/L (15-37); Alanine Aminotransfer ALT/SGPT 26 U/L (13-56); Albumin, Serum 3.2 g/dL (3.2-5.0); Alkaline Phosphatase 75 U/L (45-117); Anion Gap 10 (5-15); BUN 13 mg/dL (7-18); BUN/Creat Ratio 9.6 RATIO (10-20); Chloride 104 mmol/L (98-107); Creatinine, Serum 1.36 mg/dL (0.55-1.02); EST Glomerular Filtration Rate 40 mL/min (>60); Est Glom Filt Rate - Afr Amer 48 mL/min (>60); Glucose 276 mg/dL (74-106); Potassium 3.9 mmol/L (3.5-5.1); Protein, Total 7.2 g/dL (6.4-8.2); Sodium Level 139 mmol/L (136-145)
[2024-09-11 17:16] LABS: Magnesium 1.7 mg/dL (1.6-2.6)
== END | disposition home or self-care (01) ==
LOC: BIMLAB 14:31
PROVIDERS: Nurse Practitioner Gerontology; PCP Internal Medicine; Referring Provider Internal Medicine; Visit Provider Internal Medicine
DX: I10 Essential (primary) hypertension (principal); E11.69 Type 2 diabetes mellitus with other specified complication; Z79.4 Long term (current) use of insulin; E03.9 Hypothyroidism, unspecified; I87.2 Venous insufficiency (chronic) (peripheral); H54.7 Unspecified visual loss; E78.00 Pure hypercholesterolemia, unspecified; E66.9 Obesity, unspecified
CPT/HCPCS: 36415; 80053; 83735; 84443; 85025

== ENCOUNTER → 2024-12-07 | Outpatient (CLI) | payer MEDICARE, OTHER, SELFPAY ==
[2024-12-07 17:10] LABS: Absolute Lymphocyte Count 1.24 X10^3/uL (0.83-4.51); Basophil# 0.06 X10^3/uL; Eosinophil# 0.15 X10^3/uL; Eosinophils% 2.5 % (0-5); Hemoglobin 13.4 g/dL (12.0-15.0); Lymphocyte # 1.24 X10^3/ul (0.83-4.51); Lymphocyte % 20.9 % (19-41); Mean Corp Hgb Conc 32.7 g/dL (32-36); Mean Corpuscular Hgb 29.6 pg (27.0-32.0); Mean Corpuscular Volume 90.7 fL (81-99); Mean Platelet Vol. 9.7 fl (6.2-12.0); Monocyte# 0.45 X10^3/uL; Monocyte% 7.6 % (0-10); NRBC Flagged by Analyzer 0 % (0-5); Neutrophil # 4.03 X10^3/uL (2.7-7.7); Neutrophil % 67.8 % (47-70); Platelet Count 310 K/mm3 (150-450); RBC Distribution Width CV 12.5 % (11.6-14.6); RBC Distribution Width SD 41.3 fl (35.1-43.9); Red Blood Count 4.52 M/mm3 (4.2-5.4); White Blood Count 5.9 K/mm3 (4.4-11.0)
[2024-12-07 17:47] LABS: ALB/GLOB Ratio 0.9 RATIO (0.9-2.4); AST(SGOT) 18 U/L (15-37); Alanine Aminotransfer ALT/SGPT 31 U/L (13-56); Albumin, Serum 3.7 g/dL (3.2-5.0); Alkaline Phosphatase 87 U/L (45-117); Anion Gap 7 (5-15); BUN 20 mg/dL (7-18); Calcium,Total 9.2 mg/dL (8.5-10.1); Chloride 104 mmol/L (98-107); Creatinine, Serum 1.05 mg/dL (0.55-1.02); EST Glomerular Filtration Rate 53 mL/min (>60); Est Glom Filt Rate - Afr Amer 65 mL/min (>60); Glucose 274 mg/dL (74-106); Potassium 4.2 mmol/L (3.5-5.1); Protein, Total 7.7 g/dL (6.4-8.2); Sodium Level 138 mmol/L (136-145)
== END | disposition home or self-care (01) ==
LOC: BIMLAB 15:15
PROVIDERS: PCP Internal Medicine; Referring Provider Internal Medicine; Visit Provider Internal Medicine
DX: E03.9 Hypothyroidism, unspecified (principal); E11.69 Type 2 diabetes mellitus with other specified complication; Z79.4 Long term (current) use of insulin
CPT/HCPCS: 36415; 80053; 84443; 85025